=== PATIENT | male | born 1980 | race Caucasian/White ===

== ENCOUNTER 2023-10-01 17:11 | Emergency (ER) | payer BC, SELFPAY ==
[2023-10-01 17:27] VITALS: BP 127/77; PULSE 79; RESP 18; TEMP 36.7; O2SAT 99
[2023-10-01 17:29] VITALS: BP 127/77; PULSE 79; RESP 18; TEMP 36.7; O2SAT 99
--- NOTE | 2023-10-01 17:48 | ED.URI ---
HPI - URI/Sore Throat General Chief Complaint: Upper Respiratory Infection Stated Complaint: fever,chest feels heavy,cough Time Seen by Provider: 10/01/23 17:48 Source: patient Mode of arrival: ambulatory Limitations: no limitations History of Present Illness HPI Narrative: 43 yo M presents with c/o cough, nasal congestion, fatigue, fever, bodyaches for 3 days. Denies N/V/D. All systems reviewed and negative except as noted above. Related Data Allergies Allergy/AdvReac Type Severity Reaction Status Date / Time No Known Allergies Allergy Verified 10/01/23 17:28 Review of Systems Review of Systems: CONSTITUTIONAL: reports fever, chills, or sweats. EYES: Denies visual changes, redness, or discharge. ENT: Reports rhinorrhea, congestion, sore throat. Denies otalgia. CARDIOVASCULAR: Denies chest pain, palpitations, or edema. RESPIRATORY: reports cough. Denies dyspnea. GASTROINTESTINAL: Denies abdominal pain, nausea, vomiting, or diarrhea. GENITOURINARY: Denies dysuria or hematuria. SKIN: Denies rash or itching. MUSCULOSKELETAL: Denies back pain, joint pain, or myalgia. NEUROLOGIC: Denies headache, numbness, or weakness. PSYCHIATRIC: Denies anxiety or depression. All other systems reviewed are negative, except as documented in HPI. PMFSH Comments At time of signature, agree with nursing past medical, surgical, social and family history. There is no relevant family history pertinent to the presenting complaint. Exam Narrative: GENERAL: This is a well-nourished, well-developed patient, patient ill-appearing but no acute distress. HEAD: normocephalic, atraumatic. EYES: PERRL. Sclera clear/white. Vision is grossly intact. EARS: External ears normal, auditory canals clear and without drainage, TMs normal without perforation. Hearing grossly intact. NOSE: External nose normal with Clear nasal drainage, mild congestion. THROAT: Mucous membranes moist, Erythema and swelling to posterior pharynx. No exudates. NECK: Neck supple, non-tender without lymphadenopathy, masses or thyromegaly. CARDIOVASCULAR: Regular rate and rhythm without murmurs, gallops, or rubs. RESPIRATORY: Clear to auscultation. Breath sounds equal bilaterally. No wheezes, rales, or rhonchi. SKIN: warm, Dry, intact with no suspicious lesions or rash, good texture and turgor. NEURO: awake, alert, and oriented to person, place and time. There were no obvious focal neurologic abnormalities. EXTREMITIES: No joint tenderness, effusion, or edema noted. Course Course Level of Care: Express Care Visit Vital Signs Vital signs: Vital Signs Temperature 36.7 C 10/01/23 17:27 Pulse Rate 79 10/01/23 17:27 Respiratory Rate 18 10/01/23 17:27 Blood Pressure 127/77 10/01/23 17:27 Pulse Oximetry 99 10/01/23 17:27 Oxygen Delivery Room Air 10/01/23 17:27 Temperature 36.7 C 10/01/23 17:29 Pulse Rate 79 10/01/23 17:29 Respiratory Rate 18 10/01/23 17:29 Blood Pressure 127/77 10/01/23 17:29 Pulse Oximetry 99 10/01/23 17:29 Oxygen Delivery Room Air 10/01/23 17:29 Reviewed MDM - URI/Sore Throat MDM Narrative Medical decision making narrative: Patient is aware of diagnosis, understands and agrees to treatment plan. Anticipatory guidance given. Patient agrees to follow-up as directed and is aware of reasons to seek care at the emergency department. Portions of this record may have been created with voice recognition software Differential Diagnosis Differential diagnosis: Likely viral infection and influenza Lab Data Labs: Strep Screen Presumptive Negative *(Reference Range: Negative)* Discharge Plan Discharge Clinical Impression: Influenza A Patient Disposition: Home, Self-Care Condition: Stable Instructions: Influenza (ED) Additional Instructions: you were positive for influenza today. Influenza is a virus and symptoms may la
== END 2023-10-01 18:05 | disposition home or self-care (01) ==
PROVIDERS: Emergency Provider Nurse Practitioner Family
DX: J10.1 Influenza due to other identified influenza virus with other respiratory manifestations (principal); Z20.822 Contact with and (suspected) exposure to COVID-19
CPT/HCPCS: 87081; 87426; 87804; 87880; 99213; G0463

== ENCOUNTER 2025-04-09 17:50 | Emergency (ER) | payer OTHER, SELFPAY ==
--- OUTSIDE RECORDS SUMMARY | 2024-05-30 10:35 | XMS_ITS | Continuity of Care Document ---
Author Organization [facility] Address [address] [place] [address] Phone Care Team Providers Care Ecologist Technician Name Role Phone Suly Richardson Unavailable Unavailab le Allergies, Adverse Reactions, Alerts Substance Reaction Status Criticality No Known Allergies Active No Inform ation Medications Medication Instructions Dosage Effective Dates (start - stop) Status Comments atorvastatin 10 mg tablet take 1 tablet by oral route every day 10 MG - Active Procedures Procedure Date OFFICE [id number] Advance Directives Directive Yes / No Effective Date File Name No Information Encounters Encounter Description Practice Location Reason(s) For Visit Diagnoses Date Provider Providers Copied on Encounter [facility], [address], [place], [place], [address] , tel: [phone] [facility] No Information [address], [place], [address], [place]. tel:[phone] OFFICE [facility], [address], [place], [place], [address] , tel: [phone] [facility] possible h-pylori (chief complaint) H. pylori infectionColon cancer screening [address], [place], [address], [place]. tel:[phone] Referring Provider: Abdulkadir Jacobo, [address], [place], [address]. tel:[phone] [facility], [address], [place], [place], [address] , tel: [phone] [facility] ACUTE PHARYNGITIS [address]. [address] [place], [address], [place]. Kartik Guerrero, [address], [place], [place], [address] , [place] tel: [phone] [facility] HEALTH EXAM-GROUP SURVEY [address], [place], [address], [place]. Family History Family Member Type Diagnosis Age At Onset No Information Payers Payer name Insurance type Covered republican ID Authoriza tiesequiel(s) [facility] CI [id number] Social History Type Description Quantity Date Captured Comments Sex Male Smoking Status No Information Chief Complaint And Reason For Visit No Information Reason For Referral Reason For Referral No Information History Of Present Illness Encounter Date Complaint History Of Prese nt Illness Comments: 43 yea r old male that presents for concerns for H pylori, and colon cancer screening. Denies family hx of IBD and colon cancer. Pt states his was recently tested and treated for H pylori. He denies any current upper GI symptoms. No abdominal pain and denies changes in bowels. Weight stable possible h-pylori Functional Status Date Functional Assessmen t No Information Instructions Date Instruction Additional Infor reginald You will be due at t he age of 44 for a screening colonoscopy Related to Colon cancer screening We will order a alina th test to check for the infection, the office will call with the resultsWe will treat you if the test is positive Related to H. pylori infection Assessments Type Assessment Date No Information Patient Care Teams Name Effective Dates (start - stop) Status Members No Information
--- OUTSIDE RECORDS SUMMARY | 2024-05-30 10:35 | XMS_ITS | Continuity of Care Document ---
Author Organization 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 Role Phone Suly Richardson Unavailable Unavailab le Allergies, Adverse Reactions, Alerts Substance Reaction Status Criticality No Known Allergies Active No Inform ation Medications Medication Instructions Dosage Effective Dates (start - stop) Status Comments atorvastatin 10 mg tablet take 1 tablet by oral route every day 10 MG - Active Procedures Procedure Date OFFICE [id number] Advance Directives Directive Yes / No Effective Date File Name No Information Encounters Encounter Description Practice Location Reason(s) For Visit Diagnoses Date Provider Providers Copied on Encounter [address], [address], [place], [place], [address] , tel: [phone] [facility] No Information [address], [place], [address], [place]. tel:[phone] OFFICE [facility], [address], [place], [place], [address] , tel: [phone] [facility] possible h-pylori (chief complaint) H. pylori infectionColon cancer screening 4 [address], [place], [address], [place]. tel:[phone] Referring Provider: Abdulkadir Jacobo, [address], [place], [address]. tel:[phone] [address], [address], [place], [place], [address] , tel: [phone] [facility] ACUTE PHARYNGITIS [address]. [address] [place], [address], [place]. Kartik Guerrero, [address], [place], [place], [address] , [place] tel: [phone] [facility] HEALTH EXAM-GROUP SURVEY [address], [place], [address], [place]. Family History Family Member Type Diagnosis Age At Onset No Information Payers Payer name Insurance type Covered libertarian ID Authoriza tiesequiel(s) [facility] CI [id number] Social History Type Description Quantity Date Captured [...]
--- NOTE | ~2025-04-09 | XR_ITS ---
XR foot LT min 3V, XR ankle LT min 3V 04/09/2025 18:17 Indication: Left ankle and foot pain and swelling Procedure: 4 views left foot and 4 views left ankle Comparison: No prior studies for comparison. Findings: There is an avulsion fracture lateral margin of the cuboid. No foreign bodies.. Lisfranc joint intact. Mild lateral soft tissue swelling. Impression: 1: Avulsion fracture lateral margin of the cuboid with adjacent soft tissue swelling. Reviewed, dictated and finalized at location O. Impression: 1: Avulsion fracture lateral margin of the cuboid with adjacent soft tissue swe lling. Impression: 1: Avulsion fracture lateral margin of the cuboid with adjacent soft tissue swe lling.
--- OUTSIDE RECORDS SUMMARY | 2025-04-09 17:53 | XMS_ITS | Clinical Summary ---
Author Organization [facility] Address [address] [place] [address] Care Team Providers Care Medic Technician Name Role Phone Phill Hopper MD Primary Care Provider Unavaila ble Source Comments [facility],non-owned Affiliates and Associated Physician Practices is [facility] consisting of ambulatory clinics and hospital sitesin [place], [place], [place] and [place]. This disclosure is being madepursuant to the Care Everywhere program and may not contain all information available regarding this patient. Last updated 18.[facility] Allergies No known active allergies Medications * Be aware that medications may not be up to date on this document. Alwaysverify current medications with the patient. oxycodone CR 12hr (OXYCONTIN) 10 MG tablet Take 10 mg by mouth 3 times daily. Active gabapentin (NEURONTIN) 300 MG capsule Take 300 mg by mouth 2 times daily. Active oxycodone-acetam inophen (PERCOCET) 5-325 MG tablet Take 1 Tab by mouth every 4 hours as needed for Pain. 30 0 08/14/2009 Active methylPREDNISolo ne (MEDROL DOSEPAK) 4 MG tablet Take by mouth as directed. 21 Packet 0 04/02/2013 Active hydrOXYzine hcl (ATARAX) 25 MG tablet Take 1 Tab by mouth every 6 hours as needed for Itching. 30 Tab 0 04/02/2013 Active famotidine (PEPCID) 40 MG tablet Take 1 Tab by mouth 2 times daily. 20 Tab 0 04/02/2013 Active cephALEXin (KEFLEX) 500 MG capsule Take 1 Cap by mouth 4 times daily. 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 Gender Identity Not on file Sexual Orientation Not on file Last Filed Vital Signs Vital Sign Reading Time Taken Comments Blood Pressure 135/93 01/17/2017 1:11 PM CDT Pulse 64 01/17/2017 1:11 PM CDT Temperature 36.6 C (97.8 F) 01/17/2017 1:11 PM CDT Respiratory Rate 16 04/02/2013 1:51 PM CDT Oxygen Saturation 100% 01/17/2017 1:11 PM CDT Inhaled Oxygen Concentration - - Weight 77.1 kg (170 lb) 01/17/2017 1:11 PM CDT Height 172.7 cm (5' 8) 01/17/2017 1:11 PM CDT Body Mass Index 25.85 01/17/2017 1:11 PM CDT Plan of Treatment Health Maintenance Due Date Last Done Comments COLOGUARD (AGES 45-75) - COL ON CA SCREENING 1979 COLON MONITORING 1979 COLONOSCOPY - COLON CA SCREENING 1979 CT COLONOGRAPHY - COLON CA SCREENING 1979 Colorectal Cancer Screening 1979 FIT - COLON CA SCREENING 1979 FLEX SIG - COLON CA SCREENING 1979 LIPID TESTING 1979 HIV SCREENING 1994 HEPATITIS C SCREENING 09/10/1997 DTAP/TDAP/TD VACCINES (1 - Tdap) 1998 HEPATITIS B VACCINE (1 of 3 - 19+ 3-dose series) 1998 HPV VACCINE (1 - 3-dose SCDM series) 2006 DEPRESSION SCREENING 08/02/2024 COVID-19 VACCINE ( - 2023-2 5 season) 2025 INFLUENZA VACCINE (#1) 2025 ZOSTER VACCINE (1 of 2) 2029 HIB VACCINE Aged Out No longer eligi ble based on patient's age to complete this topic MENINGOCOCCAL (Group B) VACC INE SHARED DECISION-MAKING Aged Out No longer eligibl e based on patient's age to complete this topic MENINGOCOCCAL GROUPS A/C/Y/W VACCINE Aged Out No longer eligible b ased on patient's age to complete this topic PNEUMOCOCCAL VACCINE Aged Out No long er eligible based on patient's age to complete this topic [employer] Address: [facility] [address] [place] [address] Care Teams Medic Technician Relationship Specialty Start Date End Date Phill Hopper MD PCP - General Internal Medicine 04/02/13
[2025-04-09 18:00] VITALS: BP 145/76; PULSE 7; RESP 18; TEMP 36.3; O2SAT 99
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
== END 2025-04-09 18:48 | disposition home or self-care (01) ==
PROVIDERS: Emergency Provider Registered Nurse
DX: S92.212A Displaced fracture of cuboid bone of left foot, initial encounter for closed fracture (principal); X50.1XXA Overexertion from prolonged static or awkward postures, initial encounter; E78.00 Pure hypercholesterolemia, unspecified
CPT/HCPCS: 73610; 73630; 99214; G0463